=== PATIENT | female | born 1965 | race Caucasian/White ===

== ENCOUNTER 2023-09-03 09:12 | Emergency (ER) | payer BC, SELFPAY ==
[2023-09-03 09:14] VITALS: BP 147/78
--- NOTE | 2023-09-03 09:50 | ED.GENMED ---
History of Present Illness
General
Chief Complaint: Back Pain
Time Seen by Provider: 09/03/23 09:50
Travel History
Have you had any contact with someone who has COVID-19?: No
Do you have any symptoms of coronavirus? Fever > 100 degrees, chills, cough, shortness of breath, sore throat, loss of taste or smell, muscle aches, or headache?: No
History of Present Illness
History of Present Illness:
HPI: Patient presents with low back pain. 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 She reports no lower extremity weakness. She does have some vague nausea. She also reported some
'tingling' in her head that is since significantly improved. She has no bowel or bladder incontinence or retention. She has had no fevers. No history of IVDA. No history of cancer.
EXAM:
GENERAL: Well appearing in mild distress
HEENT: Moist oral mucosa
BACK: No CVA tenderness, there is some vague discomfort to palpation in the lumbar region diffusely, negative straight leg raise
NEUROLOGIC: Excellent strength all extremities, no coordination deficits, no sensory deficits
PSYCHIATRIC: Appropriate mental status, normal insight and judgement
EXTREMITIES: Nontender, no edema, moves all extremities equally
SKIN: No rash, no lesions
TIME OF INITIAL ENCOUNTER:
NUMBER AND COMPLEXITY OF PROBLEMS ADDRESSED AT THE ENCOUNTER
� Chronic conditions affecting care: Former smoker, celiac disease, endometriosis, hypothyroidism
� Acute Exacerbation and/or Progression of Chronic Illness: This is an acute problem
� Differential Diagnosis includes: Muscle strain, herniated disc, sciatica less likely, doubt biliary etiology given lack of direct trauma
AMOUNT AND/OR COMPLEXITY OF DATA TO BE REVIEWED AND ANALYZED
� I performed an independent evaluation of and my interpretation is:
EKG:
CT:
X-rays:
Laboratory Studies:
Other:
� Review of other/old records: I reviewed records, the patient had colonoscopy in 2020; in 2020 no suspicious osseous lesions were seen on CT imaging of the abdomen and pelvis
� Clinical information was obtained by an independent historian: Spoke to the son at bedside
� Prescriptions/Medications Considered but not given: Consider Flexeril however the patient ultimately decided to try the narcotic only be taken if severe pain
� Further testing considered but not performed: No back pain 'red flags' to warrant further imaging at this time
RISK OF COMPLICATIONS AND/OR MORBIDITY OR MORTALITY OF PATIENT MANAGEMENT
� Social determinants of health affecting care: Lives at home
� Discussion with other providers:
� Escalation of care including admission/observation vs risk of discharge considered: The patient has been taking NSAIDs; gave Toradol today. Will give short course of narcotic analgesia if needed.
Past History
Past History
ED Past Medical History: Hypothyroidism and Other (Celiac); Negative Asthma, HTN, Hypercholesterolemia or NIDDM
ED Past Surgical History: Gynecological (Hysterectomy) and Tonsilectomy
Social History
Tobacco: Non-smoker
Alcohol: Occasional
Drug: None
Personal:
Living: with family
Phy Exam
Physical Exam
Physical Exam:
See HPI
Course
Orders/Labs/Results
Orders:
Orders
09/03/23 10:12
Ondansetron Orally Disint [Zofran Odt (Orally Disintegrating)] 4 mg PO NOW STA
09/03/23 10:13
Ketorolac [Toradol] 30 mg IM NOW STA
Vital Signs
Initial and Last Documented VS:
Initial Vital Signs
Temp Pulse Resp BP Pulse Ox
98.1 F 70 18 147/78 98
09/03/23 09:14 09/03/23 09:14 09/03/23 09:14 09/03/23 09:14 09/03/23 09:14
Last Documented Vital Signs
Temp Pulse Resp BP Pulse Ox
98.1 F 70 18 147/78 98
09/03/23 09:14 09/03/23 09:14 09/03/23 09:14 09/03/23 09:14 09/03/23 09:14
*Critical Care Note
Total Time (30-74mins, 75-104mins- exclusive of procedures): Not Applicable
ED Attending Note
-
Portions of this chart may have been created with voice recognition software.� Occasional wrong word or��sound alike� substitutions may have occurred due to the inherent limitations of voice recognition software.
Discharge Plan
Departure
Patient Disposition: Home (Routine Discharge)
Date of Disposition: 09/03/23
Time of Disposition: 10:15
Patient with high blood pressure during this ER visit?: Yes
Discharge Problem:
Low back pain
Instructions: Low Back Pain (DC)
Prescriptions:
New
oxycodone-acetaminophen [Percocet] 5-325 mg tablet
1 tab PO Q6HPRN PRN (Reason: pain) Qty: 14 0RF
ondansetron 4 mg tablet,disintegrating
4 mg PO TIDPRN PRN (Reason: nausea/vomiting) Qty: 14 0RF
No Action
levothyroxine 88 MCG tablet
88 mcg PO Q48H
levothyroxine 100 MCG tablet
100 mcg PO Q48H
cetirizine 10 MG tablet
10 mg PO DAILYPRN PRN (Reason: allergies)
cyanocobalamin (vitamin B-12) 1,000 MCG tablet
1,000 mcg PO DAILY
cholecalciferol (vitamin D3) 2,000 UNITS tablet
2,000 unit PO DAILY
calcium-vitamin D3-vitamin K 1 EACH tablet,chewable
2 tab PO DAILY
[id number]-fish oil [Fish Oil] 1 EACH capsule,delayed release(DR/EC)
1 cap PO DAILY
Activity Restrictions/Additional Instructions:
Please follow-up your primary care doctor. I recommend 3-4 [id number] ibuprofen (Motrin) every 8 hours with food for a few days. Return here if worse. If you do continue to take the Motrin, I recommend that you take something to help
prevent stomach acid irritation such as [id number] omeprazole. We gave a dose of Toradol. I sent a prescription for narcotic pain medication as well as Zofran for nausea in case you want to start it. If you do take the narcotic, I recommend
that you take something like MiraLAX to help prevent constipation.
Interventions
Interventions:
*Risk Screen - Suicide Last Done: 09/03/23 09:14
*General Assessment Last Done: 09/03/23 09:14
*Neglect/Abuse Screening Last Done: 09/03/23 09:14
Discharge Date and Time
Print Language: SWISS
[2023-09-03] MEDS: TORADOL 30 MG IM (10:21)
[2023-09-03] MEDS: ZOFRAN ODT (ORALLY DISINTEGRATING) 4 MG PO (10:21)
== END 2023-09-03 10:45 | disposition home or self-care (01) ==
LOC: EMR 09:12
PROVIDERS: EMERGENCY PHYSICIAN Emergency Medicine; FAMILY PHYSICIAN Family Medicine
DX: M54.50 Low back pain, unspecified (principal); E03.9 Hypothyroidism, unspecified; Z90.710 Acquired absence of both cervix and uterus; K90.0 Celiac disease
CPT/HCPCS: 99282; 96372

== ENCOUNTER → 2024-03-21 13:17 | Outpatient (REF) | payer BC, SELFPAY | LOC: WDC 13:17 | PROVIDERS: ATTENDING PHYSICIAN Obstetrics & Gynecology; FAMILY PHYSICIAN Family Medicine | DX: Z12.31 Encounter for screening mammogram for malignant neoplasm of breast (principal) | CPT/HCPCS: 77063; 77067 ==

== ENCOUNTER → 2025-03-22 13:10 | Outpatient (REF) | payer BC, SELFPAY | LOC: WDC 13:10 | PROVIDERS: ATTENDING PHYSICIAN Obstetrics & Gynecology; FAMILY PHYSICIAN Family Medicine | DX: Z12.31 Encounter for screening mammogram for malignant neoplasm of breast (principal) | CPT/HCPCS: 77063; 77067 ==

== ENCOUNTER → 2025-04-17 11:05 | Outpatient (REF) | payer BC, SELFPAY | LOC: RAD 11:05 | PROVIDERS: ATTENDING PHYSICIAN Family Medicine | DX: M15.0 Primary generalized (osteo)arthritis (principal) | CPT/HCPCS: 73130 ==